=== PATIENT | male | born 2000 | race Two or more races ===

== ENCOUNTER 2020-03-30 11:25 | Emergency (ER) | payer BC ==
[~2020-03-30] VITALS: Ht 177.8 cm; Wt 74.6 kg
[2020-03-30 11:31] VITALS: BP 104/66
== END 2020-03-30 13:59 | disposition home or self-care (01) ==
LOC: ED 12:23
DX: M26.602 Left temporomandibular joint disorder, unspecified (principal)
CPT/HCPCS: 70100; 99283